=== PATIENT | male | born 1985 | race African-American/Black ===

== ENCOUNTER 2016-10-21 17:16 | Emergency (ER) | payer BC ==
[~2016-10-21] VITALS: Ht 175.3 cm; Wt 87.5 kg
[2016-10-21] MEDS ORDERED: ACETAMINOPHEN 500 MG TABLET PO ONE (17:45)
[2016-10-21] MEDS ORDERED: IBUPROFEN 800 MG TABLET. PO ONE (17:45)
--- NOTE | 2016-10-21 17:55 | PHYS DOC ---
Past Medical History Past Medical History: No Pertinent History Past Surgical History: No Surgical History Alcohol Use: Occasionally Drug Use: None Adult General Chief Complaint Chief Complaint: CHEST WALL PAIN HPI HPI Patient is a 31 year old male with no significant medical history who presents with a productive cough, congestion, bodyaches, nausea and vomiting, for 5 days. Patient's also complaining of subjective fevers. Review of Systems Review of Systems Constitutional: Subjective fevers Eyes: Denies change in visual acuity, redness, or eye pain [] HENT: Nasal congestion Respiratory: Productive cough Cardiovascular: No additional information not addressed in HPI [] GI: Denies abdominal pain, nausea, vomiting, bloody stools or diarrhea [] : Denies dysuria or hematuria [] Musculoskeletal: Denies back pain or joint pain [] Integument: Denies rash or skin lesions [] Neurologic: Denies headache, focal weakness or sensory changes [] Endocrine: Denies polyuria or polydipsia [] Current Medications Current Medications Current Medications Medications (Trade) Dose Ordered Sig/Radha Start Time Stop Time Status Last Admin Dose Admin Acetaminophen (Tylenol) 1,000 mg 1X ONCE 10/21/16 17:45 10/21/16 18:02 DC 10/21/16 18:15 1,000 MG Ibuprofen (Motrin) 800 mg 1X ONCE 10/21/16 17:45 10/21/16 18:02 DC 10/21/16 18:15 800 MG Ondansetron HCl (Zofran Odt) 4 mg 1X ONCE 10/21/16 18:00 10/21/16 18:02 DC 10/21/16 18:14 4 MG Allergies Allergies Allergies Coded Allergies Type Severity Reaction Last Updated Verified No Known Drug Allergies 12/21/13 No Physical Exam Physical Exam Constitutional: Well developed, well nourished, no acute distress, non-toxic appearance. [] HENT: Normocephalic, atraumatic, bilateral external ears normal, oropharynx moist, no oral exudates, nose normal. [] Eyes: PERRLA, EOMI, conjunctiva normal, no discharge. [] Neck: Normal range of motion, no tenderness, supple, no stridor. [] Cardiovascular:Heart rate regular rhythm, no murmur [] Lungs & Thorax: Bilateral breath sounds clear to auscultation [] Abdomen: Bowel sounds normal, soft, no tenderness, no masses, no pulsatile masses. [] Skin: Warm, dry, no erythema, no rash. [] Back: No tenderness, no CVA tenderness. [] Extremities: No tenderness, no cyanosis, no clubbing, ROM intact, no edema. [] Neurologic: Alert and oriented X 3, normal motor function, normal sensory function, no focal deficits noted. [] Psychologic: Affect normal, judgement normal, mood normal. [] Current Patient Data Vital Signs Vital Signs Date Time Temp Pulse Resp B/P Pulse Ox O2 Delivery O2 Flow Rate FiO2 10/21/16 17:45 101.3 102 18 135/89 98 Room Air 101.3 Lab Values Laboratory Tests Test 10/21/16 17:30 Influenza Type A Antigen Negative (NEGATIVE) Influenza Type B Antigen Positive (NEGATIVE) EKG EKG [] Radiology/Procedures Radiology/Procedures [] Course & Med Decision Making Course & Med Decision Making Pertinent Labs and Imaging studies reviewed. (See chart for details) Patient is in the ED with flulike symptoms including body aches, subjective fevers, productive cough, nausea and vomiting. Temperature in the ED is 101.3, patient was given Tylenol and Motrin. Chest x-ray interpreted by Dr. Beckman is negative for any acute findings. Positive influenza B, patient has been ill for more than 2 days, Tamiflu is not of any benefit. Positive rapid strep. Patient was discharged with amoxicillin for 10 days. Tylenol recommended every 4 hours and Motrin every 6 hours as needed for fever. Instructed to push fluids. Provided instructions to follow-up with the primary care doctor in the next 7 days. Instructed to return to the ED at any point symptoms worsen. Dragon Disclaimer Dragon Disclaimer This electronic medical record was generated, in whole or in part, using a voice recognition dictation system. Departure Departure Impression: Primary Impression: Fever Additional Impressions: Coughing Influenza B Strep pharyngitis Disposition: HOME, SELF-CARE Condition: STABLE Referrals: MALLIKA GRIFFIN (PCP) Please follow-up with your own doctor in the next 7 days Patient Instructions: Fever, Adult, [id number], Strep Infections Additional Instructions: You were seen for influenza B, and strep infection. Please complete your antibiotics. Take Tylenol every 4 hours and Motrin every 6 hours. Push fluids and maintain very good hand hygiene at home. Follow-up with your own doctor the next 7 days, come back to the emergency room if symptoms worsen. Scripts Promethazine/Phenyleph/Codeine (Promethazine Vc-Codeine Syrup)473 Ml Syrup5 Ml PO Q6HRS #80 ML Prov:LEONA HUGHES APRN 10/21/16 Amoxicillin 875 Mg Tablet1 Tab PO BID #20 TAB Prov:LEONA HUGHES APRN 10/21/16 Problem Qualifiers Primary Impression: Fever Fever type: unspecified Qualified Code: R50.9 - Fever, unspecified LEONA HUGHES APRN Oct 21, 2016 17:55
[2016-10-21] MEDS ORDERED: ONDANSETRON ODT 4 MG TAB.RAPDIS PO ONE (18:00)
[2016-10-21 18:30] LABS: OBC FLU VALID
[2016-10-21 18:45] VITALS: BP 132/86
[2016-10-21] MEDS ORDERED: AMOX875T PO (18:45)
[2016-10-21] MEDS ORDERED: PROM118S3 PO (18:45)
--- NOTE | 2016-10-22 07:48 | RAD ---
Indication: Cough. Time of exam 1751 hours. Correlation is made with prior study from 02/25/2010. FINDINGS: The heart size is normal. The lungs are clear. No pleural effusion or pneumothorax is identified. The pulmonary vascularity is normal. IMPRESSION: No acute abnormality detected.
[2016-10-22 09:06] LABS: NEGATIVE OBC STREP NEG; POSITIVE OBC STREP POS
== END 2016-10-21 18:58 | disposition home or self-care (01) ==
LOC: ER 17:16
DX: J10.1 Influenza due to other identified influenza virus with other respiratory manifestations (principal); J02.0 Streptococcal pharyngitis
CPT/HCPCS: 71020; 87804; 87880; 99285; Q0162

== ENCOUNTER 2016-11-15 02:46 | Emergency (ER) | payer BC ==
[~2016-11-15] VITALS: Ht 175.3 cm; Wt 81.6 kg
[~2016-11-15 02:46] MED LIST: AMOX875T PO; PROM118S3 PO
[2016-11-15 03:05] VITALS: BP 143/83
[2016-11-15 03:23] LABS: BILIRUBIN,URINE NEGATIVE (NEG); GLUCOSE,URINE NEGATIVE (NEG); NITRITE,URINE POSITIVE (NEG); PROTEIN,URINE 100 mg/dL (NEG-TRACE); UROBILINOGEN,URINE 0.2 mg/dL (0.2 mg/dL)
[2016-11-15 03:30] LABS: BACTERIA,URINE MANY /HPF (0-FEW); RBC,URINE TNTC /HPF (0-2); WBC,URINE TNTC /HPF (0-4)
[2016-11-15] MEDS ORDERED: HYDROMORPHONE 2 MG/ML VIAL. IV PRN (03:30)
[2016-11-15] MEDS ORDERED: IV NORMAL SALINE 500ML BAG 500 ML IV ONE (04:00)
[2016-11-15] MEDS ORDERED: ONDANSETRON PF 4 MG/2 ML VIAL. IV ONE (04:00)
[2016-11-15] MEDS ORDERED: SULF1TAB24 PO (04:16)
--- NOTE | 2016-11-15 04:17 | PHYS DOC ---
Past Medical History Past Medical History: No Pertinent History Past Surgical History: No Surgical History Alcohol Use: Occasionally Drug Use: None Adult General Chief Complaint Chief Complaint: FLANK PAIN HPI HPI 31-year-old male presenting to the emergency department today with left flank pain that radiates to his groin with hematuria. His pain is sharp moderate intermittent and not associated with fever. He denies fevers or chills. Review of systems is negative for nausea vomiting fever or chill. All other review of systems is negative unless otherwise noted in history of present illness. Review of Systems Review of Systems SEE ABOVE. Current Medications Current Medications Current Medications Medications (Trade) Dose Ordered Sig/Radha Start Time Stop Time Status Last Admin Dose Admin Hydromorphone HCl (Dilaudid) 0.5 mg PRN Q1HR PRN 11/15/16 03:30 11/15/16 05:16 DC 11/15/16 03:46 0.5 MG Ondansetron HCl 4 mg 4 mg 1X ONCE 11/15/16 04:00 11/15/16 04:01 DC 11/15/16 03:46 4 MG Sodium Chloride (Iv Sodium Chloride 0.9% 500ml Bag) 500 ml @ 500 mls/hr 1X ONCE 11/15/16 04:00 11/15/16 04:59 DC 11/15/16 03:45 500 MLS/HR Allergies Allergies Allergies Coded Allergies Type Severity Reaction Last Updated Verified No Known Drug Allergies 12/21/13 No Physical Exam Physical Exam Constitutional: Well developed, well nourished, no acute distress, non-toxic appearance. HENT: Normocephalic, atraumatic, bilateral external ears normal, oropharynx moist, no oral exudates, nose normal. [] Eyes: PERRLA, EOMI, conjunctiva normal, no discharge. Neck: Normal range of motion, no tenderness, supple, no stridor. Cardiovascular:Heart rate regular rhythm, no murmur [] Lungs & Thorax: Bilateral breath sounds clear to auscultation [] Abdomen: Soft nontender abdomen without rebound tenderness or guarding present. Negative McBurneys point. Negative Mendoza sign. No ecchymosis present. Skin: Warm, dry, no erythema, no rash. Back: No tenderness, mild left CVA tenderness. Extremities: No tenderness, no cyanosis, no clubbing, ROM intact, no edema. [] Neurologic: Alert and oriented X 3, normal motor function, normal sensory function, no focal deficits noted. [] Psychologic: Affect normal, judgement normal, mood normal. [] Current Patient Data Vital Signs Vital Signs Date Time Temp Pulse Resp B/P Pulse Ox O2 Delivery O2 Flow Rate FiO2 11/15/16 03:05 98.3 81 20 143/83 100 Room Air 98.3 Lab Values Laboratory Tests Test 11/15/16 03:10 Urine Collection Type Unknown Urine Color Yellow Urine Clarity Cloudy Urine pH 6.0 Urine Specific [place] 1.015 Urine Protein 100mg/dL (NEG-TRACE) Urine Glucose (UA) Negativemg/dL (NEG) Urine Ketones (Stick) Negativemg/dL (NEG) Urine Blood Large (NEG) Urine Nitrite Positive (NEG) Urine Bilirubin Negative (NEG) Urine Urobilinogen Dipstick 0.2mg/dL (0.2 mg/dL) Urine Leukocyte Esterase Large (NEG) Urine RBC Tntc/HPF (0-2) Urine WBC Tntc/HPF (0-4) Urine Squamous Epithelial Cells None/LPF Urine Bacteria Many/HPF (0-FEW) Urine Mucus Slight/LPF EKG EKG [] Radiology/Procedures Radiology/Procedures [] Course & Med Decision Making Course & Med Decision Making Pertinent Labs and Imaging studies reviewed. (See chart for details) [] 31-year-old male presenting to the emergency department today with signs and symptoms suggestive of nephrolithiasis versus UTI. On examination the patient was afebrile with normal vital signs. Physical exam showed mild left CVA tenderness. Urinalysis was suggestive of infection. CT the abdomen pelvis did not demonstrate any nephrolithiasis. The patient was prescribed antibiotics and discharged home to follow up with his primary care physician over the next 2-3 days. Dragon Disclaimer Dragon Disclaimer This electronic medical record was generated, in whole or in part, using a voice recognition dictation system. Departure Departure Impression: Primary Impression: UTI (urinary tract infection) Disposition: 01 HOME, SELF-CARE Condition: STABLE Referrals: NO PCP (PCP) MARIA ANTONIA STONE MD Patient Instructions: Urinary Tract Infection Additional Instructions: Thank you for allowing us to participate in your care today. Take your antibiotics as prescribed. Followup with your primary care physician in 3 days if your symptoms do not improve. If you do not have a primary care provider you can ask for a list of our primary care providers. Return to the emergency department you have any new or concerning findings. This should be evaluated by the primary care physician and any necessary consulting services for continued management within a few days after discharge. Return to emergency room if you have any new or concerning symptoms including but not limited to fever, chills, nausea, vomiting, intractable pain, any new rashes, chest pain, shortness of air, uncontrolled bleeding, difficulty breathing, and/or vision loss. Scripts Hydrocodone Bit/Acetaminophen (Hydrocodone-Apap 5-325 )1 Each Tablet1 Tab PO PRN Q6HRS PRN PAIN #15 TAB Be careful as this medication may cause you to be drowsy or tired. Do not drive on this medication. Prov:RODNEY BARRON MD 11/15/16 Sulfamethoxazole/Trimethoprim (Bactrim Ds Tablet)1 Each Tablet1 Tab PO BID #14 TAB Prov:RODNEY BARRON MD 11/15/16 RODNEY BARRON MD Nov 15, 2016 04:17
--- NOTE | 2016-11-15 04:41 | RAD ---
INDICATION: Abdomen pain. COMPARISON: None TECHNIQUE: Axial CT images obtained through the abdomen and pelvis. Intravenous contrast was not utilized. One or more of the following individualized dose reduction techniques were utilized for this examination: 1. Automated exposure control; 2. Adjustment of the mA and/or kV according to patient size; 3. Use of iterative reconstruction technique. FINDINGS: Abdominal aorta not aneurysmal. No intrahepatic bile duct dilation. No peripancreatic edema. Spleen unremarkable. No hydronephrosis. Dilated loop of small bowel in mid abdomen measuring up to 32 millimeter. Questionable mild induration of fat adjacent to bladder. Appendix does not appear grossly inflamed. IMPRESSION: No hydronephrosis. Questionable mild induration of fat next to the urinary bladder. This is a questionable finding but would correlate with symptoms in the region to ensure that this is not secondary to cystitis. There is a mildly dilated loop of small bowel seen in the mid abdomen. Electronically signed by: Bib Wilson (Nov 15, 2016 04:40:22)
[2016-11-15] MEDS ORDERED: HYDR-2666 PO (05:09)
== END 2016-11-15 05:16 | disposition home or self-care (01) ==
LOC: ER 02:46
DX: N39.0 Urinary tract infection, site not specified (principal)
CPT/HCPCS: 74176; 81001; 87086; 96361; 96374; 96375; 99285; J1170; J2405; J7040

== ENCOUNTER 2016-12-15 12:57 | Emergency (ER) | payer BC ==
[~2016-12-15] VITALS: Ht 175.3 cm; Wt 83.5 kg
[~2016-12-15 12:57] MED LIST changes: +HYDR-2666 PO; +SULF1TAB24 PO
[2016-12-15] MEDS ORDERED: IOHEXOL 300 MG/ML 75 ML VIAL IV ONE (13:45)
[2016-12-15] MEDS ORDERED: FENTANYL PF 100 MCG/2 ML VIAL. IV ONE (13:45)
[2016-12-15 13:46] LABS: CREATININE 0.8 mg/dL (0.7-1.3); GFR 136.4; POTASSIUM 3.8 mmol/L (3.5-5.1)
[2016-12-15 13:47] LABS: BASO % 1 % (0-3); EOS % 3 % (0-3); HEMOGLOBIN 14.7 g/dL (13.0-17.5); LYMPH # 1.8 x10^3/uL (1.0-4.8); LYMPH % 25 % (24-48); MEAN CORPUSCULAR HEMOGLOBIN 30 pg (25-35); MEAN CORPUSCULAR HGB CONC 33 g/dL (31-37); MEAN CORPUSCULAR VOLUME 92 fL (79-100); MONO % 11 % (0-9); NEUT % 61 % (31-73); PLATELET COUNT 178 x10^3/uL (140-400); RED CELL DISTRIBUTION WIDTH 13.2 % (11.5-14.5); WHITE BLOOD COUNT 7.5 x10^3/uL (4.0-11.0)
[2016-12-15 13:53] LABS: ALBUMIN 3.9 g/dL (3.4-5.0); TOTAL BILIRUBIN 0.3 mg/dL (0.2-1.0); TOTAL PROTEIN 7.7 g/dL (6.4-8.2)
--- NOTE | 2016-12-15 14:18 | EKG ---
[address] [place] [id number] Test Date: 2016-12-15 Test Time: 13:43:49 Pat Name: ELTON PUCKETT Department: Room: Gender: M Assistant Portfolio Manager: : 1985 Requested By: WINDY AGUSTIN Order Number: [id number] Reading MD: Measurements Intervals [place] Rate: 68 P: 26 AK: 156 QRS: 28 QRSD: 98 T: 37 QT: 352 QTc: 374 Interpretive Statements SINUS RHYTHM OTHERWISE NORMAL ECG RI6.01 No previous ECG available for comparison
[2016-12-15 14:37] LABS: NEG OBC FOB NEG; POS OBC FOB POS
--- NOTE | 2016-12-15 14:38 | PHYS DOC ---
Past Medical History Past Medical History: No Pertinent History Past Surgical History: No Surgical History Alcohol Use: Occasionally Drug Use: None Adult General Chief Complaint Chief Complaint: ABDOMINAL PAIN HPI HPI 31-year-old male who's had dark tarry stools for the last several weeks with some mild lightheadedness for the past 2-3 days. He denies any chest pain or shortness of breath. He does have some mild lower abdominal pain. He rates his pain a 5/10 on the pain scale. He denies any epigastric or left upper quadrant pain. He does not have any history of abdominal surgery. He is not taking any blood thinners. He said he tried taking some Motrin for his symptoms without relief. He states he is an occasional alcohol user but not anything recently. He denies any other illicit drug use. He does smoke cigarettes occasionally. Review of Systems Review of Systems Constitutional: Denies fever or chills [] Eyes: Denies change in visual acuity, redness, or eye pain [] HENT: Denies nasal congestion or sore throat [] Respiratory: Denies cough or shortness of breath [] Cardiovascular: No additional information not addressed in HPI [] GI: Has abdominal pain, denies nausea, denies vomiting, has bloody stools, denies diarrhea [] : Denies dysuria or hematuria [] Musculoskeletal: Denies back pain or joint pain [] Integument: Denies rash or skin lesions [] Neurologic: Denies headache, focal weakness or sensory changes [] Endocrine: Denies polyuria or polydipsia [] Current Medications Current Medications Current Medications Medications (Trade) Dose Ordered Sig/[facility] Start Time Stop Time Status Last Admin Dose Admin Fentanyl Citrate (Fentanyl 2ml Vial) 50 mcg 1X ONCE 12/15/16 13:45 12/15/16 13:46 DC 12/15/16 13:46 50 MCG Iohexol (Omnipaque 300 Mg/ml) 75 ml 1X ONCE 12/15/16 13:45 12/15/16 13:46 DC 12/15/16 14:10 75 ML Allergies Allergies Allergies Coded Allergies Type Severity Reaction Last Updated Verified No Known Drug Allergies 12/21/13 No Physical Exam Physical Exam Constitutional: Well developed, well nourished, no acute distress, non-toxic appearance. [] HENT: Normocephalic, atraumatic, bilateral external ears normal, oropharynx moist, no oral exudates, nose normal. [] Eyes: PERRLA, EOMI, conjunctiva normal, no discharge. [] Neck: Normal range of motion, no tenderness, supple, no stridor. [] Cardiovascular:Heart rate regular rhythm, no murmur [] Lungs & Thorax: Bilateral breath sounds clear to auscultation [] Abdomen: Bowel sounds normal, soft, lower abdominal tenderness, no masses, no pulsatile masses. [] Skin: Warm, dry, no erythema, no rash. [] Back: No tenderness, no CVA tenderness. [] Extremities: No tenderness, no cyanosis, no clubbing, ROM intact, no edema. [] Neurologic: Alert and oriented X 3, normal motor function, normal sensory function, no focal deficits noted. [] Psychologic: Affect normal, judgement normal, mood normal. [] Current Patient Data Vital Signs Vital Signs Date Time Temp Pulse Resp B/P Pulse Ox O2 Delivery O2 Flow Rate FiO2 12/15/16 14:21 77 17 127/79 100 Room Air 12/15/16 13:01 97.9 97.9 Lab Values Laboratory Tests Test 12/15/16 13:20 12/15/16 14:15 White Blood Count 7.5x10^3/uL (4.0-11.0) Red Blood Count 4.90x10^6/uL (4.30-5.70) Hemoglobin 14.7g/dL (13.0-17.5) Hematocrit 45.0% (39.0-53.0) Mean Corpuscular Volume 92fL (79-100) Mean Corpuscular Hemoglobin 30pg (25-35) Mean Corpuscular Hemoglobin Concent 33g/dL (31-37) Red Cell Distribution Width 13.2% (11.5-14.5) Platelet Count 178x10^3/uL (140-400) Neutrophils (%) (Auto) 61% (31-73) Lymphocytes (%) (Auto) 25% (24-48) Monocytes (%) (Auto) 11% (0-9) H Eosinophils (%) (Auto) 3% (0-3) Basophils (%) (Auto) 1% (0-3) Neutrophils # (Auto) 4.6x10^3uL (1.8-7.7) Lymphocytes # (Auto) 1.8x10^3/uL (1.0-4.8) Monocytes # (Auto) 0.8x10^3/uL (0.0-1.1) Eosinophils # (Auto) 0.2x10^3/uL (0.0-0.7) Basophils # (Auto) 0.0x10^3/uL (0.0-0.2) Sodium Level 143mmol/L (136-145) Potassium Level 3.8mmol/L (3.5-5.1) Chloride Level 104mmol/L (98-107) Carbon Dioxide Level 27mmol/L (21-32) Anion Gap 12 (6-14) Blood Urea Nitrogen 15mg/dL (8-26) Creatinine 0.8mg/dL (0.7-1.3) Estimated GFR (Cockcroft-Gault) 136.4 BUN/Creatinine Ratio 19 (6-20) Glucose Level 103mg/dL (70-99) H Calcium Level 9.0mg/dL (8.5-10.1) Total Bilirubin 0.3mg/dL (0.2-1.0) Aspartate Amino Transferase (AST) 14U/L (15-37) L Alanine Aminotransferase (ALT) 42U/L (16-63) Alkaline Phosphatase 66U/L (46-116) Total Protein 7.7g/dL (6.4-8.2) Albumin 3.9g/dL (3.4-5.0) Albumin/Globulin Ratio 1.0 (1.0-1.7) Lipase 143U/L (73-393) Stool Occult Blood Negative (NEG) Laboratory Tests 12/15/16 13:20 Laboratory Tests 12/15/16 13:20 EKG EKG [] Radiology/Procedures Radiology/Procedures [] Course & Med Decision Making Course & Med Decision Making Pertinent Labs and Imaging studies reviewed. (See chart for details) This 31-year-old male who's having dark stools has laboratory workup so far that is unrevealing. His hemoglobin is stable in the 14 range. Vital signs are so unremarkable and he does not appear to be in acute distress. The rest of his laboratory workup is unremarkable. His CT was and pelvis with IV contrast did not reveal any acute abnormalities. His stool is negative for occult blood. I'll be discharging him home with strict follow-up with his primary care doctor over the next several days with instructions to return if he develops any worsening of his dark bowel movements or develops any shortness breath or worsening of his pain. Dragon Disclaimer Dragon Disclaimer This electronic medical record was generated, in whole or in part, using a voice recognition dictation system. Departure Departure Impression: Primary Impression: Dark stools Additional Impression: Abdominal pain Disposition: HOME, SELF-CARE Admitting Physician: Other Condition: STABLE Referrals: NO PCP (PCP) Patient Instructions: Bloody Stools, [id number] Additional Instructions: Please follow up with your primary doctor in the next 2-3 days for your dark bowel movements. You may need to see a GI doctor if it does not resolve. Return to the ER if you develop any worsening of your pain or develop any shortness of breath or lightheadedness. Problem Qualifiers WINDY AGUSTIN DO Dec 15, 2016 14:38
--- NOTE | 2016-12-15 14:46 | RAD ---
CT of the abdomen and pelvis with contrast, 12/15/2016: History: Lower abdominal pain Multidetector CT imaging was performed following an IV bolus injection of iodinated contrast material. No oral contrast material was administered for this exam. A tiny subcentimeter low-density lesion in the right lobe of the liver is too small to definitively characterize, but is probably a cyst or hepatic hematoma. The gallbladder is unremarkable. No pancreatic abnormality is seen. The spleen is of normal size. No renal or adrenal abnormality is detected. The abdominal aorta is unremarkable. No abdominal or pelvic adenopathy is seen. The bowel loops are not dilated. The appendix is visualized and shows no abnormality. No free fluid or free air is evident in the abdomen or pelvis. IMPRESSION: No acute abdominal or pelvic abnormality is detected. PQRS Compliance Statement: One or more of the following individualized dose reduction techniques were utilized for this examination: 1. Automated exposure control 2. Adjustment of the mA and/or kV according to patient size 3. Use of iterative reconstruction technique
[2016-12-15 14:51] VITALS: BP 130/77
== END 2016-12-15 15:07 | disposition home or self-care (01) ==
LOC: ER 12:57
DX: K92.1 Melena (principal); R10.30 Lower abdominal pain, unspecified; F17.210 Nicotine dependence, cigarettes, uncomplicated
CPT/HCPCS: 36415; 74177; 80053; 82274; 83690; 85027; 86850; 86900; 86901; 93005; 96374; 99285; J3010; Q9967

== ENCOUNTER 2017-06-30 21:42 | Emergency (ER) | payer BC ==
[~2017-06-30 21:42] MED LIST changes: -HYDR-2666 PO; +HYDR-2758 PO
[2017-06-30 21:51] VITALS: BP 128/73
[2017-06-30] MEDS ORDERED: FLUORESCEIN OPHTH TEST STRIP. ONE (21:56)
[2017-06-30] MEDS ORDERED: TETRACAINE 0.5% OPHTH SOLUTION 4ML BOTTLE. ONE (21:56)
[2017-06-30] MEDS ORDERED: FLUORESCEIN OPHTH TEST STRIP. OD ONE (22:00)
[2017-06-30] MEDS ORDERED: TETRACAINE 0.5% OPHTH SOLUTION 4ML BOTTLE. OD ONE (22:00)
[2017-06-30] MEDS ORDERED: HYDR-971 PO (22:28)
[2017-06-30] MEDS ORDERED: ERYT1OIN6 OD (22:28)
--- NOTE | 2017-06-30 22:28 | PHYS DOC ---
Past Medical History Past Medical History: No Pertinent History Past Surgical History: No Surgical History Alcohol Use: Occasionally Drug Use: None Adult General Chief Complaint Chief Complaint: EYE PROBLEMS HPI HPI Patient is a 31 year old medical presents with foreign object to the right eye since this morning when he woke up. 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 He states he is supposed to use eyeglasses but does not use them. Review of Systems Review of Systems Constitutional: Denies fever or chills [] Eyes: foreign object to the right eye Musculoskeletal: Denies back pain or joint pain [] Integument: Denies rash or skin lesions [] Neurologic: Denies headache, focal weakness or sensory changes [] Endocrine: Denies polyuria or polydipsia [] Current Medications Current Medications Current Medications Medications (Trade) Dose Ordered Sig/Radha Start Time Stop Time Status Last Admin Dose Admin Diphtheria/ Tetanus/Acell Pertussis (Boostrix) 0.5 ml ONCE ONCE 06/30/17 22:30 06/30/17 22:31 Fluorescein Sodium (Ful-Nilam) 1 strip STK-MED ONCE 06/30/17 21:56 06/30/17 21:57 DC Tetracaine HCl (Tetracaine) 40 drop STK-MED ONCE 06/30/17 21:56 06/30/17 21:57 DC Allergies Allergies Allergies Coded Allergies Type Severity Reaction Last Updated Verified No Known Drug Allergies 12/21/13 No Physical Exam Physical Exam Constitutional: Well developed, well nourished, no acute distress, non-toxic appearance. [] HENT: Normocephalic, atraumatic, bilateral external ears normal, oropharynx moist, no oral exudates, nose normal. [] Eyes: PERRLA, EOMI, right conjunctiva is slightly injected, no discharge. [] Right eye exam under lou lamp is noted for a tiny corneal rust ring at approximately 1600 position. Skin: Warm, dry, no erythema, no rash. [] Back: No tenderness, no CVA tenderness. [] Extremities: No tenderness, no cyanosis, no clubbing, ROM intact, no edema. [] Neurologic: Alert and oriented X 3, normal motor function, normal sensory function, no focal deficits noted. [] Psychologic: Affect normal, judgement normal, mood normal. [] Current Patient Data Vital Signs Vital Signs Date Time Temp Pulse Resp B/P (MAP) Pulse Ox O2 Delivery O2 Flow Rate FiO2 06/30/17 21:51 98.3 97 18 98 Room Air 98.3 EKG EKG [] Radiology/Procedures Radiology/Procedures [] Course & Med Decision Making Course & Med Decision Making Pertinent Labs and Imaging studies reviewed. (See chart for details) Patient has a rust ring on the right cornea. Discharged with instructions to follow-up with the lyric writer provided tomorrow morning. Given tetanus. Discharged with erythromycin. Dragon Disclaimer Dragon Disclaimer This electronic medical record was generated, in whole or in part, using a voice recognition dictation system. Departure Departure Impression: Primary Impression: Corneal rust ring of right eye Disposition: HOME, SELF-CARE Condition: STABLE Referrals: NO PCP (PCP) Ju MARION MD call his office first thing tomorrow morning and set up a follow up appointment Patient Instructions: Eye - Corneal Foreign Body Additional Instructions: You have what appears to be a rust ring to the right cornea. Please contact the provided lyric writer tomorrow morning and set up a follow-up appointment. You can patch the eye for comfort. Scripts Erythromycin Base (Erythromycin) 1 Gm Oint...g. 1 APPLIC OD Q4HRS W/A, #1 MISC Prov: LEONA HUGHES APRN 06/30/17 Hydrocodone/Apap 5-325 (NORCO 5-325 TABLET) 1 Each Tablet 1 TAB PO Q4HRS W/A Y for PAIN, #10 TAB Prov: LEONA HUGHES APRN 06/30/17 LEONA HUGHES APRN Jun 30, 2017 22:28
[2017-06-30] MEDS ORDERED: DIPHTH,PERTUSS(ACELL),TET TOX 0.5 ML DISP.SYRIN. VAX IM ONE (22:30)
== END 2017-06-30 22:54 | disposition home or self-care (01) ==
LOC: ER 21:42
DX: T15.01XA Foreign body in cornea, right eye, initial encounter (principal); Y93.89 Activity, other specified; Y99.8 Other external cause status; Y92.89 Other specified places as the place of occurrence of the external cause
CPT/HCPCS: 90471; 90715; 99283-25

== ENCOUNTER 2017-07-04 12:39 | Emergency (ER) | payer BC ==
[~2017-07-04] VITALS: Ht 175.3 cm; Wt 80.7 kg
[~2017-07-04 12:39] MED LIST changes: +ERYT1OIN6 OD; +HYDR-971 PO
[2017-07-04] MEDS ORDERED: HYDROcodone/APAP 5/325MG 1 TAB TABLET PO ONE (13:00)
--- NOTE | 2017-07-04 13:02 | RAD ---
Right shoulder, 3 views, 07/04/2017: History: Shoulder pain after a fall No fracture or or dislocation is identified. The periarticular soft tissues are unremarkable. IMPRESSION: No acute right shoulder abnormality is detected.
--- NOTE | 2017-07-04 13:06 | PHYS DOC ---
Past Medical History Past Medical History: No Pertinent History Past Surgical History: No Surgical History Alcohol Use: Occasionally Drug Use: None Adult General Chief Complaint Chief Complaint: SHOULDER INJURY HPI HPI Patient is a 31 year old -[place] male who presents with right shoulder pain and headache. He states last night he was drinking and had a syncopal episode. He's not sure why he passed out. He denies any neck pain. He does complain of headache and right shoulder pain. He denies any other past medical history. He states his tetanus is up-to-date. Review of Systems Review of Systems Constitutional: Denies fever or chills [] Eyes: Denies change in visual acuity, redness, or eye pain [] HENT: Denies nasal congestion or sore throat [] Respiratory: Denies cough or shortness of breath [] Cardiovascular: No additional information not addressed in HPI [] GI: Denies abdominal pain, nausea, vomiting, bloody stools or diarrhea [] : Denies dysuria or hematuria [] Musculoskeletal: Denies back pain, positive for right shoulder pain Integument: Denies rash or skin lesions [] Neurologic: Positive for headache, Denies focal weakness or sensory changes [] Endocrine: Denies polyuria or polydipsia [] Current Medications Current Medications Current Medications Medications (Trade) Dose Ordered Sig/Radha Start Time Stop Time Status Last Admin Dose Admin Acetaminophen/ Hydrocodone Bitart (Lortab 5/325) 2 tab 1X ONCE 07/04/17 13:00 07/04/17 13:04 DC 07/04/17 13:38 2 TAB Allergies Allergies Allergies Coded Allergies Type Severity Reaction Last Updated Verified No Known Drug Allergies 12/21/13 No Physical Exam Physical Exam Constitutional: Well developed, well nourished, no acute distress, non-toxic appearance. [] HENT: Normocephalic, atraumatic, bilateral external ears normal, oropharynx moist, no oral exudates, nose normal. Dried blood with abrasion behind the right ear. Eyes: PERRLA, EOMI, conjunctiva normal, no discharge. [] Neck: Normal range of motion, no tenderness, supple, no stridor. [] Cardiovascular:Heart rate regular rhythm, no murmur [] Lungs & Thorax: Bilateral breath sounds clear to auscultation [] Abdomen: Bowel sounds normal, soft, no tenderness, no masses, no pulsatile masses. [] Skin: Warm, dry, no erythema, no rash. [] Back: No tenderness, no CVA tenderness. [] Extremities: Palpation without any obvious deformity over the right shoulder, clavicle nontender no cyanosis, no clubbing, ROM intact, no edema. Able to flex extend at the shoulder, elbow with 5 out of 5 strength Neurologic: Alert and oriented X 3, normal motor function, normal sensory function, no focal deficits noted. [] Psychologic: Affect normal, judgement normal, mood normal. [] Current Patient Data Vital Signs Vital Signs Date Time Temp Pulse Resp B/P (MAP) Pulse Ox O2 Delivery O2 Flow Rate FiO2 07/04/17 13:38 20 Room Air 07/04/17 13:07 98.6 115 114/77 (89) 97 98.6 EKG EKG [] Radiology/Procedures Radiology/Procedures [address] [address] IMAGING REPORT Signed PATIENT: ELTON JETER ACCOUNT: [id number] : 1985 LOCATION: ER AGE: 31 SEX: M EXAM STATUS: PRE ER ORD. PHYSICIAN: LEONA HUGHES APRN REASON: pain PROCEDURE: SHOULDER 2+V RIGHT Right shoulder, 3 views, 07/04/2017: History: Shoulder pain after a fall No fracture or or dislocation is identified. The periarticular soft tissues are unremarkable. IMPRESSION: No acute right shoulder abnormality is detected. DICTATED and SIGNED BY: FRED ROMO MD DATE: 07/04/17 1259 CC: NOLVIA JARAMILLO MD; LEONA HUGHES APRN; NO PCP ~ [place] [address] [place] [address] IMAGING REPORT Signed PATIENT: ELTON JETER ACCOUNT: [id number] : 1985 LOCATION: ER AGE: 31 SEX: M EXAM STATUS: REG ER ORD. PHYSICIAN: NOLVIA JARAMILLO MD REASON: trauma PROCEDURE: CT HEAD WO CONTRAST CT of the head without contrast, 07/04/2017: History: Fall, head trauma The ventricles are within normal limits in size. There is no shift of the midline structures. There is no evidence of acute intracranial hemorrhage or mass effect. IMPRESSION: No acute intracranial abnormality is detected. PQRS Compliance Statement: One or more of the following individualized dose reduction techniques were utilized for this examination: 1. Automated exposure control 2. Adjustment of the mA and/or kV according to patient size 3. Use of iterative reconstruction technique DICTATED and SIGNED BY: FRED ROMO MD DATE: 07/04/17 1410 CC: NOLVIA JARAMILLO MD; NO PCP ~ Impressions: Headache Right shoulder pain Course & Med Decision Making Course & Med Decision Making Pertinent Labs and Imaging studies reviewed. (See chart for details) CT of his head in addition to x-rays of his right shoulder not show any acute abnormality's. His headache improved substantially with 2 [place]. Patient's being discharged home with additional [place]. Return precautions given. He is agreeable plan being discharged in stable condition at this time. Dragon Disclaimer Dragon Disclaimer This electronic medical record was generated, in whole or in part, using a voice recognition dictation system. Departure Departure Impression: Primary Impression: Shoulder contusion Disposition: 01 HOME, SELF-CARE Condition: STABLE Referrals: NO PCP (PCP) Patient Instructions: Muscle Strain Additional Instructions: The CAT scan of your head did not show any acute abnormality's. The x-rays of your shoulder also did not show any fractures anything broken. He can use [place] as directed. Return ER for severe pain, fevers, numbness in your arm or legs, or other concerns. Please don't drive while taking [place] as it can impair judgment and make you sleepy. Please don't drink alcohol while taking this medicine. Scripts Hydrocodone/Apap 5-325 (NORCO 5-325 TABLET) 1 Each Tablet 1-2 TAB PO PRN Q6HRS Y for PAIN, #20 TAB 0 Refills Prov: NOLVIA JARAMILLO MD 07/04/17 Problem Qualifiers Primary Impression: Shoulder contusion Encounter type: initial encounter Laterality: right Qualified Codes: S40.011A - Contusion of right shoulder, initial encounter NOLVIA JARAMILLO MD Jul 04, 2017 13:06
[2017-07-04 13:07] VITALS: BP 114/77
--- NOTE | 2017-07-04 14:13 | RAD ---
CT of the head without contrast, 07/04/2017: History: Fall, head trauma The ventricles are within normal limits in size. There is no shift of the midline structures. There is no evidence of acute intracranial hemorrhage or mass effect. IMPRESSION: No acute intracranial abnormality is detected. PQRS Compliance Statement: One or more of the following individualized dose reduction techniques were utilized for this examination: 1. Automated exposure control 2. Adjustment of the mA and/or kV according to patient size 3. Use of iterative reconstruction technique
[2017-07-04] MEDS ORDERED: HYDR-971 PO (14:22)
== END 2017-07-04 14:45 | disposition home or self-care (01) ==
LOC: ER 12:39
DX: S40.011A Contusion of right shoulder, initial encounter (principal); S00.01XA Abrasion of scalp, initial encounter; R55 Syncope and collapse; X58.XXXA Exposure to other specified factors, initial encounter; Y93.89 Activity, other specified; Y92.89 Other specified places as the place of occurrence of the external cause; Y99.8 Other external cause status
CPT/HCPCS: 70450; 73030; 99284-25

== ENCOUNTER 2018-09-30 00:30 | Emergency (ER) | payer BC ==
[~2018-09-30] VITALS: Ht 175.3 cm; Wt 86.2 kg
[~2018-09-30 00:30] MED LIST changes: -HYDR-2758 PO; +HYDR-2761 PO; +HYDR-3164 PO; -HYDR-971 PO
[2018-09-30 01:03] LABS: BILIRUBIN,URINE NEGATIVE (NEG); COLOR,URINE YELLOW; NITRITE,URINE NEGATIVE (NEG); PROTEIN,URINE NEGATIVE (NEG-TRACE); UROBILINOGEN,URINE 0.2 mg/dL (0.2 mg/dL)
[2018-09-30 01:09] LABS: BACTERIA,URINE 0 /HPF (0-FEW); CLARITY,URINE CLEAR; RBC,URINE 0 /HPF (0-2); SQUAMOUS EPITHELIAL CELL,UR OCC /LPF; WBC,URINE 0 /HPF (0-4)
--- NOTE | 2018-09-30 01:23 | PHYS DOC ---
Past Medical History Past Medical History: No Pertinent History Past Surgical History: No Surgical History Alcohol Use: Occasionally Drug Use: None Adult General Chief Complaint Chief Complaint: ABDOMINAL PAIN HPI HPI Patient is a 33-year-old -[place] male who presents to the emergency department for evaluation. He states for the past week or so, he has had some left upper abdominal discomfort, some discomfort in his left lower chest as well. He states the pain is achy, and sometimes sharp. He denies any pleuritic pain. He states laying on his side seems to worsen his pain. He has not had any significant shortness of breath, denies any recent injuries. He has not had any vomiting or diarrhea. He states that eating also does seem to worsen his pain somewhat. He has not had any fevers or chills, hematuria or dysuria, dizziness or lightheadedness. Other than as stated above, there are no alleviating or exacerbating factors to the patient's symptoms. He did take a muscle relaxer last night which helped him sleep, and did help improve his pain somewhat. Review of Systems Review of Systems Constitutional: Denies fever or chills [] Eyes: Denies change in visual acuity, redness, or eye pain [] HENT: Denies nasal congestion or sore throat [] Respiratory: Denies cough or shortness of breath, or pleuritic pain [] Cardiovascular: No additional information not addressed in HPI [] GI: Denies nausea, vomiting, bloody stools or diarrhea [] : Denies dysuria or hematuria [] Musculoskeletal: Denies back pain or joint pain [] Integument: Denies rash or skin lesions [] Neurologic: Denies headache, focal weakness or sensory changes [] Endocrine: Denies polyuria or polydipsia [] All other systems were reviewed and found to be within normal limits, except as documented in this note. Current Medications Current Medications Current Medications Medications (Trade) Dose Ordered Sig/Radha Start Time Stop Time Status Last Admin Dose Admin Ketorolac Tromethamine (Toradol 30mg Vial) 30 mg 1X ONCE 09/30/18 03:15 09/30/18 03:16 DC 09/30/18 02:56 30 MG Multi-Ingredient Mouthwash/Gargle (Gi Cocktail) 20 ml 1X ONCE 09/30/18 01:30 09/30/18 01:31 DC 09/30/18 02:09 20 ML Sodium Chloride 1,000 ml @ 1,000 mls/hr Q1H 09/30/18 01:30 09/30/18 02:29 DC 09/30/18 02:10 1,000 MLS/HR Allergies Allergies Allergies Coded Allergies Type Severity Reaction Last Updated Verified No Known Drug Allergies 12/21/13 No Physical Exam Physical Exam PHYSICAL EXAM: CONSTITUTIONAL: Well developed, well nourished HEAD: normocephalic, atraumatic EENT: PERRL, EOMI. Conjunctivae normal color, sclerae non-icteric; moist mucous membranes. NECK: Supple, non-tender; no meningismus. LUNGS: Lungs CTA, breathing even and unlabored. Normal air movement. HEART: Regular rate and rhythm, no murmur CHEST: No deformity; non-tender ABDOMEN: The abdomen is soft, there is tenderness to palpation to the left mid and lower abdomen, without rebound or guarding, demented abdomen is soft and non -tender, no masses or bruits. EXTREM: Normal ROM; no deformity, no calf tenderness. Normal pulses palpable in all extremities. There is no pedal edema. SKIN: No rash; no diaphoresis NEURO: Alert; normal speech and cognition; CN's grossly intact; strength grossly intact without focal deficit. BACK: No CVA TTP. Current Patient Data Vital Signs Vital Signs Date Time Temp Pulse Resp B/P (MAP) Pulse Ox O2 Delivery O2 Flow Rate FiO2 09/30/18 02:20 70 18 120/79 (93) 100 Room Air 09/30/18 00:35 98.1 98.1 Lab Values Laboratory Tests Test 09/30/18 00:52 09/30/18 01:58 Urine Collection Type Unknown Urine Color Yellow Urine Clarity Clear Urine pH 8.0 Urine Specific [place] <=1.005 Urine Protein Negative mg/dL (NEG-TRACE) Urine Glucose (UA) Negative mg/dL (NEG) Urine Ketones (Stick) Negative mg/dL (NEG) Urine Blood Negative (NEG) Urine Nitrite Negative (NEG) Urine Bilirubin Negative (NEG) Urine Urobilinogen Dipstick 0.2 mg/dL (0.2 mg/dL) Urine Leukocyte Esterase Negative (NEG) Urine RBC 0 /HPF (0-2) Urine WBC 0 /HPF (0-4) Urine Squamous Epithelial Cells Occ /LPF Urine Bacteria 0 /HPF (0-FEW) White Blood Count 6.8 x10^3/uL (4.0-11.0) Red Blood Count 5.13 x10^6/uL (4.30-5.70) Hemoglobin 16.1 g/dL (13.0-17.5) Hematocrit 46.6 % (39.0-53.0) Mean Corpuscular Volume 91 fL (79-100) Mean Corpuscular Hemoglobin 31 pg (25-35) Mean Corpuscular Hemoglobin Concent 35 g/dL (31-37) Red Cell Distribution Width 13.1 % (11.5-14.5) Platelet Count 164 x10^3/uL (140-400) Neutrophils (%) (Auto) 68 % (31-73) Lymphocytes (%) (Auto) 20 % (24-48) L Monocytes (%) (Auto) 9 % (0-9) Eosinophils (%) (Auto) 2 % (0-3) Basophils (%) (Auto) 1 % (0-3) Neutrophils # (Auto) 4.6 x10^3uL (1.8-7.7) Lymphocytes # (Auto) 1.4 x10^3/uL (1.0-4.8) Monocytes # (Auto) 0.6 x10^3/uL (0.0-1.1) Eosinophils # (Auto) 0.2 x10^3/uL (0.0-0.7) Basophils # (Auto) 0.0 x10^3/uL (0.0-0.2) D-Dimer (Pennie) < 0.27 ug/mlFEU Sodium Level 142 mmol/L (136-145) Potassium Level 3.4 mmol/L (3.5-5.1) L Chloride Level 101 mmol/L (98-107) Carbon Dioxide Level 28 mmol/L (21-32) Anion Gap 13 (6-14) Blood Urea Nitrogen 7 mg/dL (8-26) L Creatinine 0.7 mg/dL (0.7-1.3) Estimated GFR (Cockcroft-Gault) 157.2 BUN/Creatinine Ratio 10 (6-20) Glucose Level 89 mg/dL (70-99) Calcium Level 9.5 mg/dL (8.5-10.1) Total Bilirubin 0.3 mg/dL (0.2-1.0) Aspartate Amino Transferase (AST) 69 U/L (15-37) H Alanine Aminotransferase (ALT) 170 U/L (16-63) H Alkaline Phosphatase 82 U/L (46-116) Creatine Kinase 66 U/L (39-308) Creatine Kinase MB (Mass) < 0.5 ng/mL (0.0-3.6) Creatine Kinase MB Relative Index % (0-4) Troponin I Quantitative < 0.017 ng/mL (0.000-0.055) IA-Xlf-X-Type Natriuretic Peptide 22 pg/mL (0-124) Total Protein 8.4 g/dL (6.4-8.2) H Albumin 4.0 g/dL (3.4-5.0) Albumin/Globulin Ratio 0.9 (1.0-1.7) L Lipase 97 U/L (73-393) Laboratory Tests 09/30/18 01:58 Laboratory Tests 09/30/18 01:58 EKG EKG [Normal sinus rhythm with a normal rate, normal axis, normal intervals, there are no acute ischemic ST/T changes.] Radiology/Procedures Radiology/Procedures [ER physician preliminary chest x-ray interpretation: No acute disease.] PROCEDURE: CT ABDOMEN PELVIS WO CONTRAST CT abdomen and pelvis without contrast: Reason for examination: Left upper quadrant abdominal pain. Helical images were obtained through the abdomen pelvis with no intravenous or oral contrast administered. Reconstruction was performed in sagittal and coronal planes. Exposure: One or more of the following individualized dose reduction techniques were utilized for this examination: 1. Automated exposure control 2. Adjustment of the mA and/or kV according to patient size 3. Use of iterative reconstruction technique. The lung bases are clear. The heart size is normal with no pericardial effusion. No focal lesion is seen at the liver, spleen, adrenal glands or pancreas. There is no cholelithiasis. The abdominal aorta and inferior vena cava show no abnormalities. No abnormality seen at the appendix. There is no evidence of diverticulosis or diverticulitis. The stomach is not distended. The small intestinal tract shows no abnormally dilated loops of bowel or obstruction. The kidneys show no renal masses, renal calculi, hydronephrosis or evidence of obstructive uropathy. No abnormality seen at the bladder, prostate gland or seminal vesicles. No free fluid or free air seen in the abdomen or pelvis. No acute bony abnormalities are seen. IMPRESSION: No acute abnormality evident in the abdomen or pelvis. Course & Med Decision Making Course & Med Decision Making Pertinent Labs and Imaging studies reviewed. (See chart for details) [3:45 AM:Patient remains stable. I discussed test results, the need for close follow-up, and return precautions.] Dragon Disclaimer Dragon Disclaimer This electronic medical record was generated, in whole or in part, using a voice recognition dictation system. Departure Departure Impression: Primary Impression: Abdominal pain Disposition: HOME, SELF-CARE Condition: STABLE Referrals: WINDY TORRES MD Patient Instructions: Abdominal Pain, Gastritis, Adult Scripts Omeprazole (OMEPRAZOLE) 20 Mg Capsule. 20 MG PO DAILY for 30 Days, #30 CAP Prov: LIANET ARREDONDO MD 09/30/18 LIANET ARREDONDO MD Sep 30, 2018 01:23
[2018-09-30] MEDS ORDERED: IV NORMAL SALINE 1000ML BAG 1,000 ML IV SCH (01:30)
[2018-09-30] MEDS ORDERED: LIDO:MAALOX 1:1 20 ML SINGLE DOSE. SWSW ONE (01:30)
[2018-09-30 02:14] LABS: BASO % 1 % (0-3); EOS # 0.2 x10^3/uL (0.0-0.7); EOS % 2 % (0-3); HEMATOCRIT 46.6 % (39.0-53.0); HEMOGLOBIN 16.1 g/dL (13.0-17.5); LYMPH # 1.4 x10^3/uL (1.0-4.8); LYMPH % 20 % (24-48); MEAN CORPUSCULAR HEMOGLOBIN 31 pg (25-35); MEAN CORPUSCULAR HGB CONC 35 g/dL (31-37); MEAN CORPUSCULAR VOLUME 91 fL (79-100); MONO # 0.6 x10^3/uL (0.0-1.1); MONO % 9 % (0-9); NEUT # 4.6 x10^3uL (1.8-7.7); NEUT % 68 % (31-73); PLATELET COUNT 164 x10^3/uL (140-400); RED BLOOD COUNT 5.13 x10^6/uL (4.30-5.70); RED CELL DISTRIBUTION WIDTH 13.1 % (11.5-14.5); WHITE BLOOD COUNT 6.8 x10^3/uL (4.0-11.0)
[2018-09-30 02:22] LABS: CALCIUM 9.5 mg/dL (8.5-10.1); CREATININE 0.7 mg/dL (0.7-1.3); GFR 157.2; POTASSIUM 3.4 mmol/L (3.5-5.1)
[2018-09-30 02:29] LABS: ALBUMIN/GLOBULIN RATIO 0.9 (1.0-1.7); TOTAL BILIRUBIN 0.3 mg/dL (0.2-1.0); TOTAL PROTEIN 8.4 g/dL (6.4-8.2)
[2018-09-30 02:44] LABS: CREATINE KINASE 66 U/L (39-308)
[2018-09-30] MEDS ORDERED: KETOROLAC 30 MG/ML VIAL. IV ONE (03:15)
--- NOTE | 2018-09-30 03:22 | RAD ---
CT abdomen and pelvis without contrast: Reason for examination: Left upper quadrant abdominal pain. Helical images were obtained through the abdomen pelvis with no intravenous or oral contrast administered. Reconstruction was performed in sagittal and coronal planes. Exposure: One or more of the following individualized dose reduction techniques were utilized for this examination: 1. Automated exposure control 2. Adjustment of the mA and/or kV according to patient size 3. Use of iterative reconstruction technique. The lung bases are clear. The heart size is normal with no pericardial effusion. No focal lesion is seen at the liver, spleen, adrenal glands or pancreas. There is no cholelithiasis. The abdominal aorta and inferior vena cava show no abnormalities. No abnormality seen at the appendix. There is no evidence of diverticulosis or diverticulitis. The stomach is not distended. The small intestinal tract shows no abnormally dilated loops of bowel or obstruction. The kidneys show no renal masses, renal calculi, hydronephrosis or evidence of obstructive uropathy. No abnormality seen at the bladder, prostate gland or seminal vesicles. No free fluid or free air seen in the abdomen or pelvis. No acute bony abnormalities are seen. IMPRESSION: No acute abnormality evident in the abdomen or pelvis. Electronically signed by: Kat June MD (09/30/2018 3:17 AM) [facility]
[2018-09-30 03:30] VITALS: BP 130/86
[2018-09-30] MEDS ORDERED: OMEP20CA9 PO (03:47)
--- NOTE | 2018-09-30 05:03 | EKG ---
[facility] [address] [place] [address] Test Date: 2018-09-30 Test Time: 01:45:24 Pat Name: ELTON JETER Department: Room: Gender: M Claims Service Representative: : 1985 Requested By: LIANET ARREDONDO Order Number: [id number] Reading MD: Measurements Intervals [place] Rate: 82 P: 15 FL: 160 QRS: 18 QRSD: 102 T: 19 QT: 348 QTc: 409 Interpretive Statements SINUS RHYTHM OTHERWISE NORMAL ECG RI6.01 No previous ECG available for comparison
--- NOTE | 2018-09-30 07:56 | RAD ---
EXAM: AP View of the chest DATE: 09/30/2018 1:19 AM INDICATION: Left-sided chest pain COMPARISON: 10/21/2016 FINDINGS: The heart is not enlarged. Mediastinal and hilar contours are normal. No focal parenchymal airspace opacity. No pleural effusion or pneumothorax. IMPRESSION: 1. No radiographic evidence for acute cardiopulmonary process. Electronically signed by: Manny Damon MD (09/30/2018 7:52 AM) [facility]
== END 2018-09-30 03:55 | disposition home or self-care (01) ==
LOC: ER 00:30
DX: R10.12 Left upper quadrant pain (principal); R07.89 Other chest pain
CPT/HCPCS: 36415; 71045; 74176; 80053; 81001; 82553; 83690; 83880; 84484; 85025; 85379; 93005; 96374; 99284; J1885; J7030

== ENCOUNTER 2019-07-11 13:56 | Emergency (ER) | payer BC ==
[~2019-07-11] VITALS: Ht 175.3 cm; Wt 88.5 kg
[~2019-07-11 13:56] MED LIST changes: +OMEP20CA10 PO
[2019-07-11 14:25] VITALS: BP 143/81
--- NOTE | 2019-07-11 14:40 | PHYS DOC ---
Past Medical History Past Medical History: No Pertinent History Past Surgical History: No Surgical History Alcohol Use: Occasionally Drug Use: None Adult General Chief Complaint Chief Complaint: MECHANICAL FALL HPI HPI Patient is a 33 year old Male who presents with patient states he fell down a flight of stairs somersaulted down them yesterday. Patient denied LOC, nausea, vomiting, head pain, dizziness, neck pain, numbness or tingling, visual changes. Patient today complains of bilateral low back pain stating that it feels tight and right foot pain. Patient rates his pain a 7 out of 10. Review of Systems Review of Systems Musculoskeletal: low back pain and right foot joint pain [] All other systems were reviewed and found to be within normal limits, except as documented in this note. Current Medications Current Medications Current Medications Medications (Trade) Dose Ordered Sig/Radha Start Time Stop Time Status Last Admin Dose Admin Acetaminophen/ Hydrocodone Bitart (Lortab 5/325) 1 tab 1X ONCE 07/11/19 14:45 07/11/19 14:46 DC Orphenadrine Citrate (Norflex) 60 mg 1X ONCE 07/11/19 14:45 07/11/19 14:46 DC Allergies Allergies Allergies Coded Allergies Type Severity Reaction Last Updated Verified No Known Drug Allergies 12/21/13 No Physical Exam Physical Exam Constitutional: Well developed, well nourished, no acute distress, non-toxic appearance. [] HENT: Normocephalic, atraumatic, bilateral external ears normal, oropharynx moist, no oral exudates, nose normal. [] Neck: Normal range of motion, no tenderness, supple, no stridor. [] Skin: Warm, dry, no erythema, no rash. [] Back: Bilateral paraspinal low back tenderness, no CVA tenderness. [] Extremities: Dorsal foot tenderness, no cyanosis, no clubbing, ROM intact, no edema. [] Neurologic: Alert and oriented X 3, normal motor function, normal sensory function, no focal deficits noted. [] Psychologic: Affect normal, judgement normal, mood normal. [] Current Patient Data Vital Signs Vital Signs Date Time Temp Pulse Resp B/P (MAP) Pulse Ox O2 Delivery O2 Flow Rate FiO2 07/11/19 14:25 97.8 79 16 143/81 (101) 100 Room Air 97.8 EKG EKG [] Radiology/Procedures Radiology/Procedures [] Impressions: [facility] [address] [place] [address] IMAGING REPORT Signed PATIENT: ELTON JETER ACCOUNT: [id number] : 1985 LOCATION: ER AGE: 33 SEX: M EXAM STATUS: REG ER ORD. PHYSICIAN: GA RODRIGUEZ APRN REASON: FALL, PAIN PROCEDURE: LUMBAR SPINE 2-3V Examination: LUMBAR SPINE 2-3V History: Fall, pain Comparison/Correlation: None Findings: Total 3 images of the lumbar spine were obtained including frontal, lateral, and coned-down lateral L5-S1 view. Vertebral body heights and disc spaces are normal. No fracture or bony destruction. Minimal spurring of the T12 vertebra is noted. Alignment is normal. Impression: Normal lumbar spine x-ray exam. Electronically signed by: Rashawn Hickman MD (07/11/2019 3:01 PM) [facility] DICTATED and SIGNED BY: RASHAWN HICKMAN MD DATE: 07/11/19 1509 [facility] [address] [place], [place] [id number] IMAGING REPORT Signed PATIENT: ELTON JETER ACCOUNT: [id number] : 1985 LOCATION: ER AGE: 33 SEX: M EXAM STATUS: REG ER ORD. PHYSICIAN: GA RODRIGUEZ APRN REASON: FALL, PAIN PROCEDURE: FOOT RIGHT 3V Examination: ANKLE RIGHT 3V, FOOT RIGHT 3V History: Fall, pain Comparison/Correlation: None Findings: Total 3 images of the right foot and 3 images of the right ankle were obtained. Joint spaces are adequate. No fracture or bone destruction. Soft tissues are unremarkable. Ankle joint mortise is intact. No degenerative change. Impression: Normal right foot and ankle x-ray exams. Electronically signed by: Rashawn Hickman MD (07/11/2019 2:59 PM) [facility] DICTATED and SIGNED BY: RASHAWN HICKMAN MD DATE: 07/11/19 1453 Course & Med Decision Making Course & Med Decision Making Ambulatory with a steady gait. Skin pink warm and dry. Bilateral low back is tender to palpation. There is no focal bony spinal pain. Patient has full range of motion of his neck. No injury to his head or face. No deformity to his back or spine or bruising. Patient has tenderness to the dorsal foot on the fibula side. Patient can wiggle toes. Positive pedal pulse. There is no swelling or deformity to the joint there is no laxity in the joint. There is no tenderness to the ankle or swelling. Patient is up and ambulating on that extremity. The less than 3 seconds. Dragon Disclaimer Dragon Disclaimer This electronic medical record was generated, in whole or in part, using a voice recognition dictation system. Departure Departure Impression: Primary Impression: Foot pain, right Disposition: 01 HOME, SELF-CARE Condition: STABLE Referrals: NO PCP (PCP) Patient Instructions: Foot Contusion Additional Instructions: Follow up with primary care provider. Use jesse wrap, ice, and Ibuprofen for pain. Scripts Ibuprofen (IBUPROFEN) 600 Mg Tablet 600 MG PO PRN Q6HRS PRN for INFLAMMATION, #20 TAB Prov: GA RODRIGUEZ APRN 07/11/19 GA RODRIGUEZ APRN Jul 11, 2019 14:40
[2019-07-11] MEDS ORDERED: HYDROcodone/APAP 5/325MG 1 TAB TABLET PO ONE (14:45)
[2019-07-11] MEDS ORDERED: ORPHENADRINE CITRATE 60 MG/2 ML VIAL. IM ONE (14:45)
--- NOTE | 2019-07-11 15:02 | RAD ---
Examination: ANKLE RIGHT 3V, FOOT RIGHT 3V History: Fall, pain Comparison/Correlation: None Findings: Total 3 images of the right foot and 3 images of the right ankle were obtained. Joint spaces are adequate. No fracture or bone destruction. Soft tissues are unremarkable. Ankle joint mortise is intact. No degenerative change. Impression: Normal right foot and ankle x-ray exams. Electronically signed by: Rashawn Padgett MD (07/11/2019 2:59 PM) [facility]
--- NOTE | 2019-07-11 15:04 | RAD ---
Examination: LUMBAR SPINE 2-3V History: Fall, pain Comparison/Correlation: None Findings: Total 3 images of the lumbar spine were obtained including frontal, lateral, and coned-down lateral L5-S1 view. Vertebral body heights and disc spaces are normal. No fracture or bony destruction. Minimal spurring of the T12 vertebra is noted. Alignment is normal. Impression: Normal lumbar spine x-ray exam. Electronically signed by: Rashawn Padgett MD (07/11/2019 3:01 PM) [facility]
[2019-07-11] MEDS ORDERED: IBUP-1007 PO (15:13)
== END 2019-07-11 15:30 | disposition home or self-care (01) ==
LOC: ER 13:56
DX: M79.671 Pain in right foot (principal); M54.5 Low back pain; G89.11 Acute pain due to trauma; W10.8XXA Fall (on) (from) other stairs and steps, initial encounter; Y93.89 Activity, other specified; Y92.89 Other specified places as the place of occurrence of the external cause; Y99.8 Other external cause status
CPT/HCPCS: 72100; 73610; 73630; 96372; 99284; J2360